=== PATIENT | female | born 1995 | race American Indian/Alaskan Native ===

== ENCOUNTER 2017-05-05 21:42 | Emergency (ER) | payer OTHER ==
[2017-05-05 21:51] VITALS: BP 115/74; PULSE 87; RESP 16; TEMP 98.3; O2SAT 98
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
== END 2017-05-05 22:24 | disposition home or self-care (01) ==
LOC: C.ER 21:42
DX: S16.1XXA Strain of muscle, fascia and tendon at neck level, initial encounter (principal); V89.2XXA Person injured in unspecified motor-vehicle accident, traffic, initial encounter